=== PATIENT | male | born 1975 | race Caucasian/White ===

== ENCOUNTER → 2019-08-20 | Outpatient (CLI) | payer OTHER | LOC: CAT 08-14 10:40 | DX: Z13.6 Encounter for screening for cardiovascular disorders (principal); E78.00 Pure hypercholesterolemia, unspecified; I25.10 Atherosclerotic heart disease of native coronary artery without angina pectoris ==

== ENCOUNTER → 2019-11-11 | Outpatient (CLI) | payer OTHER | LOC: ULTRA 08:39 | DX: K82.4 Cholesterolosis of gallbladder (principal) ==

== ENCOUNTER 2019-12-11 07:51 | Day surgery (SDC) | payer OTHER ==
[~2019-12-11] VITALS: Ht 177.8 cm; Wt 97.5 kg
[2019-12-11] VITALS (8 sets, daily range): BP systolic 122–146; BP diastolic 70–89
[~2019-12-11 07:51] MED LIST: OMEPRAZOLE 20 M20 M1 PO; ZESTRIL40 MG PO
--- NOTE | 2019-12-11 09:39 | EKG ---
[facility] [place] [address] ELECTROCARDIOGRAM REPORT Name: JESSICA GRANDE Room #: REG [facility] M..#: [id number] Admission: 12/11/19 Attend Phys: Kimo Combs MD Discharge: Date of : 71 Report #: [id number] THIS REPORT FOR: cc: Jessica Miranda James A. 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
--- NOTE | 2019-12-11 11:36 | H ---
[facility] [place] [address] HISTORY AND PHYSICAL Name: JESSICA GRANDE Room #: 150-8 [facility] M..#: [id number] Admission: 12/11/19 Attend Phys: Kimo Combs MD Discharge: Date of : 71 Report #: [id number] THIS REPORT FOR: cc: Jessica Miranda,Kimo Denise MD ~ CC: Jessica Beltran PREOPERATIVE DIAGNOSIS: Cholecystitis. HISTORY OF PRESENT ILLNESS: The patient is a 44-year-old who has had right upper quadrant pain that started few weeks ago. The patient had similar episode about a year ago, he recalls. The pain is dull in nature that started a few weeks ago. It did not seem to go away. The pain radiated to his back. The patient stated that after eating a pizza, it made the pain worse. Usually, it takes few hours after eating pizza before it starts to get worse. The patient has nausea and bloating and increased gas, both belching and flatus. No vomiting. No loose stool. No family history of gallbladder disease that he is aware of. Has more issues with constipation. The patient's ultrasound demonstrates small echogenic focus, which is described as polyps. These are probably cholesterol deposits. The radiologist typically calls these polyps. The patient is recommended to undergo laparoscopic cholecystectomy. His symptoms are pretty classic gallbladder disease. PAST MEDICAL HISTORY: High blood pressure. He denies heart disease, diabetes, liver or kidney disease, lung disease. No history of bleeding disorder. No history of blood clot. MEDICATIONS: Lisinopril and omeprazole. ALLERGIES: He is not allergic to anything. PAST SURGICAL HISTORY: He has not had any surgeries. FAMILY HISTORY: Father had a heart attack. Mother had COPD. Both in age 70. There is diabetes in the family. 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 He does not smoke, occasionally drinks beer. REVIEW OF SYSTEMS: No chest pain, shortness of breath, palpitation. No numbness or weakness. No headaches, blurred vision. IMPRESSION: The patient is a 44-year-old who has had abdominal pain, first noticed about a year ago, then he is having more trouble now for about a month. [address] [address] HISTORY AND PHYSICAL Name: JESSICA GRANDE Room #: 150-8 [facility] M.R.#: [id number] Admission: 12/11/19 Attend Phys: Kimo Combs MD Discharge: Date of : 71 Report #: [id number] The patient's pain is located in the right upper quadrant, specific food intolerance. The patient is recommended to undergo laparoscopic cholecystectomy for diseased gallbladder. He has likely a cholesterolosis in the gallbladder. Procedure was discussed in detail. Risk of bleeding, infection, common bile duct injury, bile leak was discussed. The patient understands the procedure and wishes to proceed. <ELECTRONICALLY SIGNED> By: Kimo Combs MD 12/11/19 1136 [id number] Kimo Combs MD /nt
[2019-12-11] MEDS ORDERED: NORCO 5-325 TA1 EAC1 PO (16:59)
--- NOTE | 2019-12-11 20:33 | NUR ---
pt admitted from PACU about 1400pm, pt is A&OX3, PT'S VS ARE STABLE, PT'S ABD LAP SARAH SURGICAL AREAS DRESSING ARE C/D/I, PT HAS PAIN MEDICATION ABOUT 1600PM, PT IS TOLERATED SOFT DIET, RN RECEIVED ORDER TO DC PT HOME PER PT REQUEST, RN HAS GIVING DC TEACHING , PT AND HIS UNDERSTAND WELL , PT 'S COLOR COATER PT TO HOME ABOUT 1900PM.
--- NOTE | 2019-12-12 10:35 | O ---
[facility] [place] [address] OPERATIVE REPORT Name: JESSICA GRANDE Room #: DEP [facility]..#: [id number] Admission: 12/11/19 Attend Phys: Kimo Combs MD Discharge: 12/11/19 Date of : 71 Report #: [id number] THIS REPORT FOR: cc: Jessica Miranda James A. DO Chu, Peter Y. MD ~ CC: Jessica Beltran DATE OF SERVICE: 12/11/2019 PREOPERATIVE DIAGNOSIS: Cholecystitis with cholesterolosis. POSTOPERATIVE DIAGNOSIS: Cholecystitis with cholesterolosis. PROCEDURE PERFORMED: Laparoscopic cholecystectomy with intraoperative cholangiogram. SURGEON: Kimo Combs MD ANESTHESIA: General anesthesia. COMPLICATIONS: None. ESTIMATED BLOOD LOSS: 5 mL. DESCRIPTION OF PROCEDURE: With the patient under general anesthesia, abdomen was prepped and draped in sterile fashion. Timeout was performed. IV antibiotic was administered. A 0.25% Marcaine was used to anesthetize the skin infraumbilically. A curvilinear incision was made. The fascia was identified. Fascia was then opened under visualization, 0 Vicryl suture placed on the fascia for retraction. Veress needle was then placed through the rest of the posterior fascia and the peritoneum. Abdominal cavity was insufflated with CO2 without difficulty. After creating pneumoperitoneum with about 3 liters CO2, 11 mm trocar was placed into the pneumoperitoneum under visualization. No harm to underlying tissue. A 10 mm scope was placed. The patient was placed in the reverse Trendelenburg position, right side tilted up. Two 5 mm trocars were placed in the right upper quadrant laterally. Another 5 mm trocar was placed in right epigastrium. Gallbladder was identified. The liver is normal looking. The gallbladder had adhesions along the ventral surface of it. These adhesions were taken down. The proximal part of the gallbladder was identified. The peritoneum was dissected free. Cystic duct was then identified and isolated. There is a branch of cystic artery, which actually was posterior and lateral to the cystic duct. The artery was isolated, clipped x 2 proximally, once distally and then divided. Cystic duct was then isolated. Clip was placed in [facility] [address] [place] [address] OPERATIVE REPORT Name: CHRISTIANEJESSICA JUAREZ Room #: DEP [facility] M.R.#: [id number] Admission: 12/11/19 Attend Phys: Kimo Combs MD Discharge: 12/11/19 Date of : 71 Report #: [id number] of cystic duct to the gallbladder. Opening was made in the cystic duct. Cholangiogram catheter was placed. Fluoroscopic cholangiogram was obtained. The catheter was identified in the cystic duct, common duct filled out well, no filling defect. Common duct was preserved from harm. After the cholangiogram, the catheter was then removed. The proximal cystic duct was then clipped x 2 and then divided. Further along the liver bed, there were 2 small arteries that were posterior and lateral. These were clipped and divided. Gallbladder was free from the liver bed without difficulty. The gallbladder was then placed in a specimen bag, retrieved through the infraumbilical port. Gallbladder was opened off the field. There is quite a bit of cholesterolosis identified within the gallbladder, also small cholesterol material in the bile itself. Hemostasis obtained. Irrigation was performed. The clips were intact. No bleeding, no bile was identified. Irrigation was performed and irrigation fluid was aspirated out. Trocars were removed. CO2 was evacuated. The fascia defect infraumbilically was closed with [id number] 0 Vicryl x 2. Skin was irrigated, closed with 5-0 PDS along all the trocar sites. Steri-Strips, Band-Aids applied. The patient tolerated the procedure well. <ELECTRONICALLY SIGNED> By: Kimo Combs MD 12/12/19 1035 09 2225 iKmo Combs MD /nt
--- NOTE | 2019-12-15 10:09 | PATH ---
[facility] [address] [place] [address] PATHOLOGY RPT PROCEDURE Name: JESSICA GRANDE Room #: DEP [facility] M.R.#: [id number] Admission: 12/11/19 Date of : 71 Discharge: 12/11/19 Report #: [id number] Path Case #: [id number] [facility] Accession Number: [id number] . 01 Material submitted: . gallbladder - GALLBLADDER . 01 Clinical history: . Cholecystitis. . 02 Diagnosis: Gallbladder, cholecystectomy: - Mild chronic cholecystitis. - Numerous cholesterol polyps in a background of cholesterolosis. 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 02 Electronically signed: . Symone Uribe MD, Pathologist NPI- [id number] . 01 Gross description: . Received in formalin labeled "Den, Jessica, gallbladder" is a previously opened cholecystectomy specimen measuring 7.3 x 2.7 x 0.9 cm. The serosa is pink-villarreal and smooth. The specimen is opened to reveal villarreal brown velvety mucosa with numerous adherent yellow-villarreal possible cholesterol polyps covering 25% of the surfaces and ranging from 0.1-0.5 cm in greatest dimension. The average wall thickness is 0.1 cm. Calculi are not grossly identified. Research Compliance Specialist sections of the fundus and body and the cystic duct margin are submitted in A1. ([facility]; 12/11/2019) [facility] 12/11/2019 1811 Local . 02 Pathologist provided ICD-10: K81.1, K82.4 . 02 CPT . 396840 Specimen Comment: A courtesy copy of this report has been sent to [phone], [phone]- Specimen Comment: [phone] Specimen Comment: Report sent to / DR GERMAN Performed at: [address] [id number] MD Sb Rosado MD Phone: [phone] Performed at: [address] [address] PATHOLOGY RPT PROCEDURE Name: JESSICA GRANDE Room #: DEP [facility] M.R.#: [id number] Admission: 12/11/19 Date of : 71 Discharge: 12/11/19 Report #: [id number] Path Case #: [id number] [address], [place], [place] [id number] MD Symone Uribe MD Phone: [phone]
== END 2019-12-11 18:36 | disposition home or self-care (01) ==
LOC: OR 07:51 → TBA 10:22 → OR 10:30 → 4W 12:35 → OR 14:16 → ENTRNSPT 18:12 → OR 18:36
DX: K81.1 Chronic cholecystitis (principal); I10 Essential (primary) hypertension; K21.9 Gastro-esophageal reflux disease without esophagitis; F17.220 Nicotine dependence, chewing tobacco, uncomplicated; Z98.890 Other specified postprocedural states; Z79.899 Other long term (current) drug therapy; Z82.49 Family history of ischemic heart disease and other diseases of the circulatory system; Z83.3 Family history of diabetes mellitus
CPT/HCPCS: 50010; 50101; 50249; 50411; 50555; 50558; 51489; 53307; 53310; 53312; 55245; 55317; 56462; 56525; 56526; 62110; 62900; 70005